=== PATIENT | male | born 1985 | race Caucasian/White ===

== ENCOUNTER 2017-04-05 20:20 | Emergency (ER) | payer MEDICAID ==
[~2017-04-05] VITALS: Ht 167.6 cm; Wt 83.0 kg
[2017-04-05 20:26] VITALS: BP 159/72
[2017-04-05] MEDS ORDERED: HYDROcodone/APAP 5/325 TABLET ONE (20:39)
[2017-04-05] MEDS ORDERED: HYDROcodone/APAP 5/325 TABLET PO ONE (21:00)
== END 2017-04-05 22:14 | disposition home or self-care (01) ==
LOC: ED 22:00
DX: B00.1 Herpesviral vesicular dermatitis (principal)
CPT/HCPCS: 99283